=== PATIENT | male | born 1955 | race Caucasian/White ===

== ENCOUNTER 2018-07-05 11:57 | Emergency (ER) | payer OTHER ==
[2018-07-05] MEDS ORDERED: SODIUM BICARBONATE 8.4% INJ 50ML SYRINGE IV ONE (11:58)
[2018-07-05] MEDS ORDERED: CALCIUM CHLOR(10%) 100MG/ML 10ML SYRINGE IV ONE (11:58)
[2018-07-05] MEDS ORDERED: EPINEPHrine HCL 1 MG/10 ML SYRG IV ONE (11:58)
== END 2018-07-05 18:01 | disposition expired ==
LOC: ER 11:57
DX: I46.9 Cardiac arrest, cause unspecified (principal)
CPT/HCPCS: 92950; 99285; J0171